=== PATIENT | female | born 2000 | race Caucasian/White ===

== ENCOUNTER 2020-07-02 14:36 | Outpatient (CLI) | payer BC, SELFPAY ==
--- NOTE | ~2020-07-02 | US_ITS ---
US pelvic complete w TV DATE: 07/02/2020 15:28 INDICATION: Perineal and pelvic pain for one week, improving TECHNIQUE: Real-time imaging via transabdominal and transvaginal approaches COMPARISON: None FINDINGS: The uterus measures 6.7 cm height, 0.5 cm transverse and 4.2 cm anteroposterior dimension. The central endometrial echo complex measures 5.7 mm AP dimension, within normal range. An IUD is present within the uterine endometrial cavity.. Right ovary measures 5.4 x 4.3 x 3.6 cm. There is a 4.2 x 3.4 x 3.3 cm complicated ovarian cyst witho ut internal vascularity, with through transmission posterior enhancement.. Left ovary measures 3.2 x 2.4 x 1.5 cm. Small left ovarian follicles are noted. There is blood flow to both ovaries. There is a small fluid collection in the cul-de-sac which may be physiologic. IMPRESSION: 4.2 cm complicated right ovarian cyst Small free fluid collection in the cul-de-sac, possibly physiologic IUD within uterus Reviewed, dictated and finalized at [facility]. Reviewed, dictated and finalized at [facility].
== END 2020-07-02 14:37 | disposition home or self-care (01) ==
PROVIDERS: PCP Nurse Practitioner Family; Visit Provider Obstetrics & Gynecology
DX: R10.2 Pelvic and perineal pain (principal); Z97.5 Presence of (intrauterine) contraceptive device; N83.201 Unspecified ovarian cyst, right side
CPT/HCPCS: 76830; 76856